=== PATIENT | male | born 1980 | race Asian ===

== ENCOUNTER 2016-12-13 10:20 | Outpatient (CLI) | payer OTHER | END 2016-12-13 10:21 | disposition home or self-care (01) | DX: M89.8X3 Other specified disorders of bone, forearm (principal); R60.0 Localized edema ==

== ENCOUNTER 2018-08-06 07:02 | Emergency (ER) | payer OTHER ==
[2018-08-06] MEDS ORDERED: LIDOCAINE-EPINEPH-TETRACAINE 3 ML SYRINGE TOP STA (07:12)
--- NOTE | 2018-08-06 07:22 | ED Physician Documentation ---
History of Present Illness - Stated complaint Stated Complaint: FOREHEAD LAC - Chief complaint Chief Complaint: Laceration - Additonal information Additional information: hx from pt healthy immunized 38 male AD hit forehead on his door this AM lac between eyebrows no LOC no neck pain no numbness or weakness Review of Systems Eyes: denies: Loss of vision Ears: denies: Loss of hearing Nose: denies: Epistaxis Skin: reports: Laceration (s) Musculoskeletal: denies: Neck pain, Back pain Neurologic: reports: Head injury. denies: Focal weakness, Numbness, Syncope, Altered mental status, LOC Endocrine: denies: Easy bruising / bleeding Immunocompromised: denies: Immunocompromised PD PAST MEDICAL HISTORY - Past Medical History Cardiovascular: None Respiratory: None Endocrine/Autoimmune: None GI: None : None HEENT: None Psych: None Musculoskeletal: Other Derm: None - Past Surgical History Past Surgical History: No - Present Medications Home Medications: Ambulatory Orders Medication Instructions Recorded Confirmed No Known Home Medications 06/23/16 06/23/16 - Allergies Allergies/Adverse Reactions: Allergies Allergy/AdvReac Type Severity Reaction Status Date / Time No Known Drug Allergies Allergy Verified 06/23/16 08:55 - Social History Does the pt smoke?: No Smoking Status: Never smoker - Immunizations Immunizations are current?: Yes PD ED PE NORMAL - Vitals Vital signs reviewed: Yes - General General: Alert and oriented X 3 - HEENT HEENT: PERRL - Neck Neck: Supple, no meningeal sign, No bony TTP - Cardiac Cardiac: RRR - Respiratory Respiratory: No respiratory distress - Derm Derm: Other (2 cm vertical lac just medial to L brow, no FB, no bony TTP) - Neuro Neuro: Alert and oriented X 3, 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 No: FB identified Skin layer closure: Dermabond Other: Patient tolerated well, Tetanus UTD Complexity: Simple Departure - Departure Disposition: 01 Home, Self Care Clinical Impression: Facial laceration Qualifiers: Encounter type: initial encounter Qualified Code(s): S01.81XA - Laceration without foreign body of other part of head, initial encounter Head injury Qualifiers: Encounter type: initial encounter Qualified Code(s): S09.90XA - Unspecified injury of head, initial encounter Condition: Good Instructions: ED Head Injury Closed, ED Laceration Facial Skin Glue Comments: Please carefully read over the head injury precautions and return if worse in any way. May wash your face and shower normally but do not apply any lotion or ointment to the skin glue. The glue will gradually flake off over about 10 days This wound should be low risk for infection and we washed it out carefully - but if you notice any redness swelling drainage or fever please come back to the ER
[2018-08-06 08:26] VITALS: BP 138/68
== END 2018-08-06 08:24 | disposition home or self-care (01) ==
LOC: ED 07:02
DX: S01.81XA Laceration without foreign body of other part of head, initial encounter (principal); W22.8XXA Striking against or struck by other objects, initial encounter
CPT/HCPCS: 12011; 99281; 99283

== ENCOUNTER 2018-12-31 15:04 | Outpatient (CLI) | payer OTHER | END 2018-12-31 15:05 | disposition home or self-care (01) | LOC: SC 15:04 | PROVIDERS: ATTEND Internal Medicine Pulmonary Disease | DX: G47.33 Obstructive sleep apnea (adult) (pediatric) (principal) | CPT/HCPCS: 99203; 99212 ==